=== PATIENT | female | born 1960 | race Caucasian/White ===

== ENCOUNTER 2017-06-29 19:03 | Observation (INO) | payer BC ==
[~2017-06-29] VITALS: Ht 154.9 cm; Wt 60.9 kg
[~2017-06-29 19:03] MED LIST: HYDR-3533 PO; METHO500 PO; ROSU40 PO
[2017-06-29 19:18] VITALS: BP 186/91; PULSE 75; RESP 14; TEMP 98.2; O2SAT 98
[2017-06-29] MEDS ORDERED: ROSU40 PO (19:22)
[2017-06-29] MEDS ORDERED: ASPIRIN 81 MG CHEW TAB CHEW ONE (19:30)
[2017-06-29] MEDS ORDERED: NITROGLYCERIN 2% OINT 1 GM PACKET TOPICAL ONE (19:30)
[2017-06-29] MEDS ORDERED: PANTOPRAZOLE SODIUM 40 MG VIAL IV PUSH ONE (19:45)
--- NOTE | 2017-06-29 19:48 | PD ---
HPI Chief Complaint: Chest Pain Time Seen by Provider: 19:15 Travel History International Travel<30 days: No Contact w/Intl Traveler<30days: No Traveled to known affect area: No History of Present Illness HPI Patient is a 56-year-old female who at 4 AM awoke this morning with left-sided chest pain underneath her left breast that radiates to her neck as well as to the upper back. She took 2 baby aspirin at that time and went back to sleep. She woke the pain was still there she thought maybe it was a muscle strain so she took Aleve without relief of her symptoms. She does admit that she drank a can of V8 last night before going to bed and does not usually do that. She does have a history of acid reflux. Significant family history her brother had an MO at the age of 37. She does not have diabetes she did not have hypertension she had a stress test that was 13 years ago. In the ER the pain is still there vaguely not as strong as it was prior. She has not seen a doctor for this pain pain is a dull aching in her chest with radiation to the left neck as well as upper mid back. Family history also includes her mother had a cardiac surgery in her 60s. Has an allergy to penicillin PFS Past Medical History Anemia: Yes High Cholesterol: Yes Hypertension: Yes Tetanus Vaccination: > 5 Years Influenza Vaccination: No Menopausal: Yes Dilation and Curettage (D&C): Yes Past Surgical History Section: Yes (X 2) Social History Alcohol Use: Yes (PT STATES "OCCASIONAL") Tobacco Use: No Substance Use: No Allergies-Medications (Allergen,Severity, Reaction): Coded Allergies: penicillin G (Verified Allergy, Severe, hives, 06/29/17) Reported Meds & Prescriptions Reported Meds & Active Scripts Active Reported Crestor (Rosuvastatin Calcium) 40 Mg Tab 40 Mg PO DAILY Review of Systems Except as stated in HPI: all other systems reviewed are Neg HENT: Positive: Neck Pain (left anterior) Cardiovascular: Positive: Chest Pain or Discomfort, No: Palpitations Respiratory: No: Cough, Shortness of Breath Physical Exam Narrative GENERAL: Awake alert nontoxic appearing in no apparent distress SKIN: Warm and dry. HEAD: Atraumatic. Normocephalic. EYES: Pupils equal and round. No scleral icterus. No injection or drainage. ENT: No nasal bleeding or discharge. Mucous membranes pink and moist. NECK: Trachea midline. No JVD. CARDIOVASCULAR: Regular rate and rhythm. Blood pressure is 187/90 RESPIRATORY: No accessory muscle use. Clear to auscultation. Breath sounds equal bilaterally. GASTROINTESTINAL: Abdomen soft, non-tender, nondistended. Hepatic and splenic margins not palpable. MUSCULOSKELETAL: Extremities without clubbing, cyanosis, or edema. No obvious deformities. NEUROLOGICAL: Awake and alert. No obvious cranial nerve deficits. Motor grossly within normal limits. Five out of 5 muscle strength in the arms and legs. Normal speech. PSYCHIATRIC: Appropriate mood and affect; insight and judgment normal. Data Data Last Documented VS Vital Signs Date Time Temp Pulse Resp B/P (MAP) Pulse Ox O2 Delivery O2 Flow Rate FiO2 06/29/17 21:30 60 14 151/80 (103) 98 Room Air 06/29/17 19:18 98.2 Orders Orders Complete Blood Count With Diff (06/29/17 19:19) Comprehensive Metabolic Panel (06/29/17 19:19) Troponin I (06/29/17 19:19) Lipase (06/29/17 19:19) Chest, Single Ap (06/29/17 ) Electrocardiogram (06/29/17 ) Aspirin Chew (Aspirin Chew) (06/29/17 19:30) Nitroglycerin 2% Oint (Nitroglycerin 2% (06/29/17 19:30) Pantoprazole Inj (Protonix Inj) (06/29/17 19:45) Ketorolac Inj (Toradol Inj) (06/29/17 20:45) Urinalysis - C+S If Indicated (06/29/17 20:39) Diazepam (Valium) (06/29/17 21:30) Place In Observation (06/29/17 21:30) Activity Bed Rest With Brp (06/29/17 21:30) Vital Signs (Adult) Q4H (06/29/17 21:30) Cardiac Rhythm .As Directed (06/29/17 21:30) Notify Dr: Other .PRN (06/29/17 21:30) Notify Parameters (06/29/17 21:30) Ckmb (Isoenzyme) Profile (06/29/17 21:30) Ckmb (Isoenzyme) Profile (06/30/17 00:30) Troponin I (06/29/17 21:30) Troponin I (06/30/17 00:30) Electrocardiogram (06/29/17 21:30) Electrocardiogram (06/30/17 00:30) ^ Obtain (06/29/17 21:30) Sodium Chloride 0.9% Flush (Ns Flush) (06/29/17 21:30) Sodium Chloride 0.9% Flush (Ns Flush) (06/30/17 09:00) Acetaminophen (Tylenol) (06/29/17 21:30) Famotidine (Pepcid) (06/30/17 09:00) Pantoprazole (Protonix) (06/30/17 09:00) Aspirin (Aspirin) (06/30/17 09:00) Dermatology Nurse Practitioner / Telemetry LEA.Q8H (06/29/17 21:30) Admit Order (Ed Use Only) (06/29/17 22:00) CKMB (06/29/17 22:00) CKMB% (06/29/17 22:00) CKMB (06/30/17 00:27) CKMB% (06/30/17 00:27) Labs Laboratory Tests Test 06/29/17 19:24 06/29/17 20:45 06/29/17 22:00 White Blood Count 7.3 TH/MM3 Red Blood Count 4.16 MIL/MM3 Hemoglobin 12.7 GM/DL Hematocrit 37.2 % Mean Corpuscular Volume 89.4 FL Mean Corpuscular Hemoglobin 30.5 PG Mean Corpuscular Hemoglobin Concent 34.1 % Red Cell Distribution Width 13.0 % Platelet Count 232 TH/MM3 Mean Platelet Volume 9.9 FL Neutrophils (%) (Auto) 56.8 % Lymphocytes (%) (Auto) 29.0 % Monocytes (%) (Auto) 9.2 % Eosinophils (%) (Auto) 4.4 % Basophils (%) (Auto) 0.6 % Neutrophils # (Auto) 4.1 TH/MM3 Lymphocytes # (Auto) 2.1 TH/MM3 Monocytes # (Auto) 0.7 TH/MM3 Eosinophils # (Auto) 0.3 TH/MM3 Basophils # (Auto) 0.0 TH/MM3 CBC Comment DIFF FINAL Differential Comment Blood Urea Nitrogen 14 MG/DL Creatinine 0.96 MG/DL Random Glucose 102 MG/DL Total Protein 7.6 GM/DL Albumin 4.2 GM/DL Calcium Level 8.9 MG/DL Alkaline Phosphatase 86 U/L Aspartate Amino Transf (AST/SGOT) 23 U/L Alanine Aminotransferase (ALT/SGPT) 21 U/L Total Bilirubin 0.3 MG/DL Sodium Level 139 MEQ/L Potassium Level 3.4 MEQ/L Chloride Level 105 MEQ/L Carbon Dioxide Level 28.9 MEQ/L Anion Gap 5 MEQ/L Estimat Glomerular Filtration Rate 60 ML/MIN Troponin I LESS THAN 0.02 NG/ML LESS THAN 0.02 NG/ML Lipase 150 U/L Urine Color LIGHT-YELLOW Urine Turbidity CLEAR Urine pH 6.5 Urine Specific [place] 1.005 Urine Protein NEG mg/dL Urine Glucose (UA) NEG mg/dL Urine Ketones NEG mg/dL Urine Occult Blood SMALL Urine Nitrite NEG Urine Bilirubin NEG Urine Urobilinogen LESS THAN 2.0 MG/DL Urine Leukocyte Esterase SMALL Urine RBC 5 /hpf Urine WBC 7 /hpf Urine Squamous Epithelial Cells <1 /hpf Urine Bacteria RARE /hpf Microscopic Urinalysis Comment CULT NOT INDICATED Total Creatine Kinase 163 U/L Creatine Kinase MB 0.8 NG/ML MDM Medical Decision Making Medical Screen Exam Complete: Yes Emergency Medical Condition: Yes Differential Diagnosis GERD VS myocardial ischemia pulmonary or muscle strain Narrative Course risk factors of brother had MO at age 37 . Pt has normal EKG and first trop but needs center admit fort repeat trops and Stress test Oliverio Veras MD Jun 29, 2017 19:48
[2017-06-29 19:52] LABS: AUTOMATED NEUTROPHIL # 4.1 TH/MM3 (1.8-7.7); BASOPHIL % 0.6 % (0.0-2.0); EOSINOPHIL # 0.3 TH/MM3 (0-0.4); EOSINOPHIL % 4.4 % (0.0-4.0); HEMATOCRIT 37.2 % (35.0-46.0); HEMO FLAGS DIFF FINAL; LYMPHOCYTE # 2.1 TH/MM3 (1.0-4.8); MEAN CELL VOLUME 89.4 FL (80.0-100.0); MEAN CORPUSCULAR HEMOGLOBIN 30.5 PG (27.0-34.0); MEAN CORPUSCULAR HGB CONC 34.1 % (32.0-36.0); MONO % 9.2 % (0.0-8.0); NEUT % 56.8 % (16.0-70.0); PLATELET COUNT 232 TH/MM3 (150-450); RED BLOOD COUNT 4.16 MIL/MM3 (4.00-5.30); WHITE BLOOD COUNT 7.3 TH/MM3 (4.0-11.0)
--- NOTE | 2017-06-29 20:07 | RADRPT ---
EXAM DATE/TIME: 06/29/2017 19:59 [facility] COMPARISON: CHEST SINGLE AP, August 15, 2015, 17:31. INDICATIONS : Chest pain. MEDICAL HISTORY : None. SURGICAL HISTORY : None. ENCOUNTER: Initial ACUITY: 1 day PAIN SCORE: 4/10 LOCATION: Bilateral chest FINDINGS: A single view of the chest demonstrates the lungs to be symmetrically aerated without evidence of mas s, infiltrate or effusion. The cardiomediastinal contours are unremarkable. Osseous structures are intact. CONCLUSION: No acute disease. Cal Johnson MD on June 29, 2017 at 20:05 Board Certified Radiologist. This report was verified electronically.
[2017-06-29 20:10] LABS: ANION GAP 5 MEQ/L (5-15); AST (GOT) 23 U/L (15-37); BICARBONATE 28.9 MEQ/L (21.0-32.0); BLOOD UREA NITROGEN 14 MG/DL (7-18); CHLORIDE 105 MEQ/L (98-107); GLOMERULAR FILTRATION RATE 60 ML/MIN (>89); POTASSIUM 3.4 MEQ/L (3.5-5.1); SODIUM (NA) 139 MEQ/L (136-145)
[2017-06-29 20:11] LABS: ALT (GPT) 21 U/L (10-53)
[2017-06-29 20:13] LABS: ALKALINE PHOSPHATASE 86 U/L (45-117); TOTAL BILIRUBIN ADULT 0.3 MG/DL (0.2-1.0)
[2017-06-29] MEDS ORDERED: KETOROLAC TROMETHAMINE 30 MG/ML (IVP) VIAL IV PUSH ONE (20:45)
[2017-06-29 21:08] LABS: BACTERIA, URINE RARE /hpf; BLOOD, URINE SMALL (NEG); COMMENT (UR) CULT NOT INDICATED; CULTURE IF INDICATED CULT NOT INDICATED; GLUCOSE,URINE NEG (NEG); KETONE, URINE NEG (NEG); NITRITE,URINE NEG (NEG); PH, URINE 6.5 (5.0-8.5); SQUAMOUS EPITHELIAL CELL URINE <1 /hpf (0-5); URINE COLOR LIGHT-YELLOW (YELLW/STRAW)
--- NOTE | 2017-06-29 21:09 | EKG ---
Date Performed: 06/29/2017 Time Performed: 19:20:32 PTAGE: 56 years EKG: Sinus rhythm NORMAL ECG INTERPRETATION BASED ON A DEFAULT AGE OF 40 YEARS No significant change from prior electr ocardiogram. PREVIOUS TRACING : 08/15/2015 17.45 DOCTOR: Byron Isbell Interpretating Date/Time 06/29/2017 21:08:01
[2017-06-29 21:30] VITALS: BP 151/80; PULSE 60; RESP 14; O2SAT 98
[2017-06-29] MEDS ORDERED: SODIUM CHLORIDE 0.9% FLUSH 10 ML FLUSH IV FLUSH PRN (21:30)
[2017-06-29] MEDS ORDERED: DIAZEPAM 5 MG TAB PO ONE (21:30)
[2017-06-29] MEDS ORDERED: ACETAMINOPHEN 500 MG CPLT PO PRN (21:30)
[2017-06-29 22:53] LABS: CREATINE KINASE 163 U/L (26-192)
[2017-06-29 23:06] LABS: CKMB 0.8 NG/ML (0.5-3.6)
[2017-06-29 23:44] VITALS: BP 125/71; PULSE 63; RESP 18; TEMP 98; O2SAT 99
[2017-06-30 01:02] LABS: CREATINE KINASE 138 U/L (26-192)
[2017-06-30 01:14] LABS: CKMB 0.9 NG/ML (0.5-3.6)
[2017-06-30 03:54] VITALS: BP 116/66; PULSE 72; RESP 18; TEMP 97.9; O2SAT 96
[2017-06-30 07:02] VITALS: BP 125/72; PULSE 64; RESP 18; TEMP 98.1; O2SAT 96
[2017-06-30 07:20] VITALS: PULSE 62
[2017-06-30] MEDS ORDERED: PANTOPRAZOLE SOD 40 MG DELAYED RELEASE TAB PO SCH (09:00)
[2017-06-30] MEDS ORDERED: FAMOTIDINE 20 MG TAB PO SCH (09:00)
[2017-06-30] MEDS ORDERED: ASPIRIN 325 MG TAB PO SCH (09:00)
[2017-06-30] MEDS ORDERED: SODIUM CHLORIDE 0.9% FLUSH 10 ML FLUSH IV FLUSH SCH ×2 (09:00→21:00)
--- NOTE | 2017-06-30 09:18 | HHI.HP ---
HPI Primary Care Physician PCP in [place] (she cannot remember name) Chief Complaint Chest pain History of Present Illness 56-year-old female with no significant past medical history presents to emergency room for further evaluation chest pain. Onset 4 AM. Pain awakens her from sleep. Location left anterior chest. Characterized as a dull pain. Severity moderate. Radiation to left neck, shoulder, and left scapula area. Associated symptoms nausea. Denied vomiting, diaphoresis, or dyspnea. Precipitating factors she relates to carrying sleeping granddaughter from the car into the home yesterday, which she normally does not do. No known relieving factors. Reports pain "almost completely gone." Review of Systems General: No fatigue,weakness, fever, chills, or recent illness. Has been in her general state health. HEENT: No [place], no vision changes CV: As stated above. No current chest pain or pressure. RESP: No SOB, cough, wheeze, or recent upper respiratory infection. GI: Nausea is resolved. No vomiting, bowel changes, diarrhea, or constipation. No change in appetite, no unintentional weight gain or weight loss. : No dysuria, urgency, frequency EXT: No lower leg edema, no paraesthesias MS: No discomfort or change in ROM NEURO: No difficulty with balance, LOC, motor/sensory deficits PSYCH: No anxiety, depression. Current situational stress. Reports custody of 5 and 6-year-old grandchildren due to daughter's addiction to drugs. 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, fibromyalgia Past Surgical History Reported Medications Reported Meds & Active Scripts Active Reported Crestor (Rosuvastatin Calcium) 40 Mg Tab 40 Mg PO DAILY Active Ordered Medications Current Medications Medications (Trade) Dose Ordered Sig/Pema Route Start Time Stop Time Status Last Admin (NS Flush) 2 ml UNSCH PRN IV FLUSH 06/29/17 21:30 (NS Flush) 2 ml BID IV FLUSH 06/30/17 09:00 (Tylenol) 500 mg Q4H PRN PO 06/29/17 21:30 (Pepcid) 20 mg BID PO 06/30/17 09:00 (Protonix) 40 mg DAILY PO 06/30/17 09:00 (Aspirin) 325 mg DAILY PO 12/8/17 09:00 Family History Positive for early onset cardiovascular disease. Brother CABG age 36. Father CVA 5, beginning age 54. Mother FL in her early 60s. Social History No known diabetes, hypertension, or hyperlipidemia. Lifelong nonsmoker. Denies any alcohol or illegal drug use. . Custody of young grandchildren. Active lifestyle, verbalizing she has decrease activity since taking care of grandchildren. Past cardiac testing No recent cardiac testing. Reports having normal nuclear stress test after brother's CABG surgery by brother's painter apprentice recommendation. Physical Exam Vital Signs Vital Signs Date Time Temp Pulse Resp B/P (MAP) Pulse Ox O2 Delivery O2 Flow Rate FiO2 06/30/17 07:02 98.1 64 18 125/72 (89) 96 06/30/17 03:54 97.9 72 18 116/66 (83) 96 06/29/17 23:44 98.0 63 18 125/71 (89) 99 06/29/17 23:37 06/29/17 21:30 60 14 151/80 (103) 98 Room Air 06/29/17 19:18 98.2 75 14 186/91 (122) 98 Physical Exam GENERAL: Alert WN, WD, NAD, pleasant, female HEAD: NC, AT EYES: Sclera clear, conjunctiva without injection ENT: Mucous membranes pink and moist NECK: Supple, no masses, trachea midline CV: RRR, without murmur, rub, gallop, no JVD, S1-S2 no S3-S4. No carotid bruits. RESP: Clear lungs throughout bilateral, no crackles, wheeze, rhonchi, symmetrical chest rise, nonlabored, able to speak in full sentences ABD: Soft, NT, ND, no masses, positive bowel tones EXT: Pulses +24, no dependent edema MS: Normal tone 4 extremities, nontender, no obvious deformities, full range of motion NEURO: CN II through CN XII grossly intact, motor strength 5/5, gait WNL PSYCH: A+O 3, pleasant affect, appropriate speech, mood, insight and judgment SKIN: Normal turgor, normal texture, no lesions, no rashes, brisk cap refill, even hair distribution Laboratory Laboratory Tests Test 06/29/17 19:24 06/29/17 20:45 06/29/17 22:00 06/30/17 00:27 White Blood Count 7.3 Red Blood Count 4.16 Hemoglobin 12.7 Hematocrit 37.2 Mean Corpuscular Volume 89.4 Mean Corpuscular Hemoglobin 30.5 Mean Corpuscular Hemoglobin Concent 34.1 Red Cell Distribution Width 13.0 Platelet Count 232 Mean Platelet Volume 9.9 Neutrophils (%) (Auto) 56.8 Lymphocytes (%) (Auto) 29.0 Monocytes (%) (Auto) 9.2 Eosinophils (%) (Auto) 4.4 Basophils (%) (Auto) 0.6 Neutrophils # (Auto) 4.1 Lymphocytes # (Auto) 2.1 Monocytes # (Auto) 0.7 Eosinophils # (Auto) 0.3 Basophils # (Auto) 0.0 CBC Comment DIFF FINAL Differential Comment Blood Urea Nitrogen 14 Creatinine 0.96 Random Glucose 102 Total Protein 7.6 Albumin 4.2 Calcium Level 8.9 Alkaline Phosphatase 86 Aspartate Amino Transf (AST/SGOT) 23 Alanine Aminotransferase (ALT/SGPT) 21 Total Bilirubin 0.3 Sodium Level 139 Potassium Level 3.4 Chloride Level 105 Carbon Dioxide Level 28.9 Anion Gap 5 Estimat Glomerular Filtration Rate 60 Troponin I LESS THAN 0.02 LESS THAN 0.02 LESS THAN 0.02 Lipase 150 Urine Color LIGHT-YELLOW Urine Turbidity CLEAR Urine pH 6.5 Urine Specific [place] 1.005 Urine Protein NEG Urine Glucose (UA) NEG Urine Ketones NEG Urine Occult Blood SMALL Urine Nitrite NEG Urine Bilirubin NEG Urine Urobilinogen LESS THAN 2.0 Urine Leukocyte Esterase SMALL Urine RBC 5 Urine WBC 7 Urine Squamous Epithelial Cells <1 Urine Bacteria RARE Microscopic Urinalysis Comment CULT NOT INDICATED Total Creatine Kinase 163 138 Creatine Kinase MB 0.8 0.9 Result Diagram: 06/29/17192306/29/17 192 Imaging Last Impressions Chest X-Ray 06/29/17 0000 Signed Impressions: Service Date/Time: June 19:59 - CONCLUSION: No acute disease. Cal Johnson MD Course EKG Normal sinus arrhythmia, normal axis, no ST or T-segment changes Caprini VTE Risk Assessment Caprini VTE Risk Assessment: No/Low Risk (score <= 1) Caprini Risk Assessment Model Point Value = 1 Point Value = 2 Point Value = 3 Point Value = 5 Age 41-60 Minor surgery BMI > 25 kg/m2 Swollen legs Varicose veins or History of unexplained or recurrent spontaneous Oral contraceptives or hormone replacement Sepsis (< 1 month) Serious lung disease, including pneumonia (< 1 month) Abnormal pulmonary function Acute myocardial infarction Congestive heart failure (< 1 month) History of inflammatory bowel disease Medical patient at bed rest Age 61-74 Arthroscopic surgery Major open surgery (> 45 min) Laparoscopic surgery (> 45 min) Malignancy Confined to bed (> 72 hours) Immobilizing plaster cast Central venous access Age >= 75 History of VTE Family history of VTE Factor V Leiden Prothrombin [id number] Lupus anticoagulant Anticardiolipin antibodies Elevated serum homocysteine Heparin-induced thrombocytopenia Other congenital or acquired thrombophilia Stroke (< 1 month) Elective arthroplasty Hip, pelvis, or leg fracture Acute spinal cord injury (< 1 month) Prophylaxis Regimen Total Risk Factor Score Risk Level Prophylaxis Regimen 0-1 Low Early ambulation 2 Moderate Order ONE of the following: *Sequential Compression Device (SCD) *Heparin 5000 units SQ BID 3-4 Higher Order ONE of the following medications: *Heparin 5000 units SQ TID *Enoxaparin/Lovenox 40 mg SQ daily (WT < 150 kg, CrCl > 30 mL/min) *Enoxaparin/Lovenox 30 mg SQ daily (WT < 150 kg, CrCl > 10-29 mL/min) *Enoxaparin/Lovenox 30 mg SQ BID (WT < 150 kg, CrCl > 30 mL/min) AND/OR *Sequential Compression Device (SCD) 5 or more Highest Order ONE of the following medications: *Heparin 5000 units SQ TID (Preferred with Epidurals) *Enoxaparin/Lovenox 40 mg SQ daily (WT < 150 kg, CrCl > 30 mL/min) *Enoxaparin/Lovenox 30 mg SQ daily (WT < 150 kg, CrCl > 10-29 mL/min) *Enoxaparin/Lovenox 30 mg SQ BID (WT < 150 kg, CrCl > 30 mL/min) AND *Sequential Compression Device (SCD) Assessment and Plan Assessment and Plan #1 Atypical chest pain-admitted chest pain center. Ruled out with 3 sets of EKGs, cardiac enzymes, monitor overnight. Will be seen and evaluated by Dr. Victor Hugo Hickey. Discussed the likelihood she will complete an exercise stress test after evaluation of painter apprentice. Patient agreeable to plan of care. Naturally, if stress test does not show sign of ischemia and to discharge home with follow-up with PCP. #2 Hyperlipidemia-continue Crestor #3 Situational stress-encouraged finding a support group for grandparents raising grandchildren. She is agreeable to plan a care. In fact, has already spoke with a local gnostic[employer] who offers this service. Encouraged increasing her daily exercise for stress relief and cardiovascular health. Shannon Matthews Jun 30, 2017 09:18
[2017-06-30] MEDS ORDERED: ONDANSETRON HCL 4 MG/2 ML VIAL IV PUSH PRN (09:30)
[2017-06-30] MEDS ORDERED: SODIUM CHLORIDE 0.9% FLUSH 10 ML FLUSH IV FLUSH PRN (09:30)
[2017-06-30] MEDS ORDERED: NITROGLYCERIN 0.4 MG SL 25 TABS/BTL SL PRN (09:30)
[2017-06-30] MEDS ORDERED: ACETAMINOPHEN 500 MG CPLT PO PRN (09:30)
[2017-06-30 11:05] VITALS: BP 141/84; PULSE 66; RESP 18; TEMP 98.4; O2SAT 98
--- NOTE | 2017-06-30 13:36 | HHI.DCPOC ---
Discharge Care Plan Diagnosis: (1) Musculoskeletal chest pain (2) Situational stress Goals to Promote Your Health * To prevent worsening of your condition and complications * To maintain your health at the optimal level Directions to Meet Your Goals Take your medications as prescribed Follow your dietary instruction Follow activity as directed Keep your appointments as scheduled Take your immunizations and boosters as scheduled If your symptoms worsen call your PCP, if no PCP go to Urgent Care Center or Emergency Room Smoking is Dangerous to Your Health. Avoid second hand smoke Call the 24-hour hour crisis hotline for domestic abuse at Shannon Matthews Jun 30, 2017 13:36
--- NOTE | 2017-06-30 13:39 | EKG ---
Date Performed: 06/30/2017 Time Performed: 00:49:09 PTAGE: 56 years EKG: Sinus rhythm WITH SINUS ARRHYTHMIA NORMAL ECG PREVIOUS TRACING : 06/29/2017 19.20 DOCTOR: Victor Hugo Hickey Interpretating Date/Time 06/30/2017 13:38:14
--- NOTE | 2017-06-30 13:42 | EKG ---
Date Performed: 06/29/2017 Time Performed: 22:20:56 PTAGE: 56 years EKG: SINUS BRADYCARDIA BORDERLINE ECG PREVIOUS TRACING : 06/29/2017 19.20 Since previous tracing, no significant change noted DOCTOR: Victor Hugo Hickey Interpretating Date/Time 06/30/2017 13:40:50
--- NOTE | 2017-06-30 14:18 | TR ---
Date Performed: 06/30/2017 Time Performed: 13:12:04 DOCTOR: Victor Hugo Hickey DRUG LIST: CLINICAL HISTORY: CHEST PAIN REASON FOR TEST: REASON FOR ENDING: OBSERVATION: CONCLUSION: Chris protocol completed. Stopped sec to exceeding target heart rate and leg fatigue . Maximum PJ=282 Target HR Achieved=95.0% Maximum XG=916/77 Total Exercise Time=6:31. No reprod chest discomfort. No ectopy. No st t segment changes to sugg ischemia. Good exercise response. Normal bp r esponse. Recovery quick and unremarkable. COMMENTS: Conclusion: Normal treadmill exercise. No evidence of ischemia.
[2017-07-01] MEDS ORDERED: ASPIRIN 325 MG TAB PO SCH (09:00)
== END 2017-06-30 15:12 | disposition home or self-care (01) ==
LOC: NEPE 19:03 → NEDA 22:01 → NEPFCDU 23:41
DX: R07.89 Other chest pain (principal); R11.0 Nausea; I49.9 Cardiac arrhythmia, unspecified; R00.1 Bradycardia, unspecified; I10 Essential (primary) hypertension; E78.00 Pure hypercholesterolemia, unspecified; K21.9 Gastro-esophageal reflux disease without esophagitis; M79.7 Fibromyalgia; Z79.899 Other long term (current) drug therapy
CPT/HCPCS: 71010; 80053; 81001; 82550; 82552; 83690; 84484; 85025; 93005; 93017; 96374; 96375; 99285; C9113; G0378; J1885